=== PATIENT | female | born 1960 | race Caucasian/White ===

== ENCOUNTER 2017-02-17 08:28 | Emergency (ER) | payer MEDICAID ==
[~2017-02-17] VITALS: Ht 167.6 cm; Wt 67.4 kg
[2017-02-17 08:31] VITALS: BP 145/102
[2017-02-17] MEDS ORDERED: DIAZEPAM 5 MG TABLET ONE (08:54)
[2017-02-17] MEDS ORDERED: KETOROLAC 30 MG/1 ML ONE (08:54)
[2017-02-17] MEDS ORDERED: DIAZEPAM 5 MG TABLET PO ONE (09:00)
[2017-02-17] MEDS ORDERED: KETOROLAC 30 MG/1 ML IM ONE (09:00)
== END 2017-02-17 09:51 | disposition home or self-care (01) ==
LOC: ED 09:45
DX: S39.012A Strain of muscle, fascia and tendon of lower back, initial encounter (principal); I10 Essential (primary) hypertension; F17.210 Nicotine dependence, cigarettes, uncomplicated; X58.XXXA Exposure to other specified factors, initial encounter; Y93.89 Activity, other specified; Y92.89 Other specified places as the place of occurrence of the external cause; Y99.9 Unspecified external cause status
CPT/HCPCS: 96372; 99283; J1885